=== PATIENT | female | born 1990 | race Caucasian/White ===

== ENCOUNTER 2017-07-14 13:49 | Observation (INO) | payer MEDICAID ==
[~2017-07-14] VITALS: Ht 154.9 cm; Wt 96.2 kg
[~2017-07-14 13:49] MED LIST: PNV1TABL76 PO
== END 2017-07-14 16:00 | disposition home or self-care (01) ==
LOC: ER 14:25 → L&D 14:28
PROVIDERS: ADMIT Obstetrics & Gynecology; ATTEND Obstetrics & Gynecology
DX: O26.853 Spotting complicating pregnancy, third trimester (principal); O26.893 Other specified pregnancy related conditions, third trimester; R05 Cough; L81.8 Other specified disorders of pigmentation; Z3A.33 33 weeks gestation of pregnancy
CPT/HCPCS: G0378; J7120

== ENCOUNTER 2017-07-14 16:28 | Emergency (ER) | payer MEDICAID ==
[~2017-07-14] VITALS: Ht 154.9 cm; Wt 97.0 kg
[2017-07-14 23:07] VITALS: BP 119/69
== END 2017-07-14 23:07 | disposition home or self-care (01) ==
LOC: ER 20:39
DX: O99.513 Diseases of the respiratory system complicating pregnancy, third trimester (principal); J02.9 Acute pharyngitis, unspecified; R21 Rash and other nonspecific skin eruption; Z3A.33 33 weeks gestation of pregnancy
CPT/HCPCS: 99281; 99283

== ENCOUNTER 2018-01-08 19:33 | Emergency (ER) | payer MEDICAID ==
[~2018-01-08] VITALS: Ht 157.5 cm; Wt 86.0 kg
[2018-01-09] MEDS ORDERED: SODIUM CHLORIDE 0.9% 1,000 ML IV ONE (01:43)
[2018-01-09] MEDS ORDERED: ONDANSETRON HCL 4MG/2ML VIAL IV ONE (01:45)
[2018-01-09 02:06] LABS: BASOPHILS % 0.5 % (0.0-2.0); EOSINOPHILS % 0.4 % (0.0-5.0); HEMOGLOBIN. 11.1 g/dL (12.0-16.0); LYMPHOCYTES % 17.3 % (20.0-50.0); MEAN CORPUSCULAR HEMOGLOBIN 26.4 pg (28.0-32.0); MEAN CORPUSCULAR VOLUME 80.8 fL (81.0-99.0); MEAN PLATELET VOLUME 10.2 fl (7.4-10.4); MONOCYTES % 7.5 % (2.0-8.0); NEUTROPHILS % 74.3 % (40.0-76.0); PLATELET 282 x1000/uL (130-400); RED CELL DISTRIBUTION WIDTH 14.7 % (11.6-14.6)
[2018-01-09 02:08] LABS: CHLORIDE 106 mEq/L (98-107)
[2018-01-09 02:26] LABS: HCG SCREEN NEGATIVE
[2018-01-09 03:25] LABS: CLARITY URINE CLOUDY (CLEAR); COLOR URINE YELLOW (YELLOW); KETONES URINE NEGATIVE (NEGATIVE); LEUKOCYTE ESTERASE URINE 2+ (NEGATIVE); NITRITE URINE POSITIVE (NEGATIVE); OCCULT BLOOD URINE NEGATIVE (NEGATIVE); PROTEIN URINE NEGATIVE (NEGATIVE); SPECIFIC GRAVITY URINE 1.021 (1.005-1.030); UROBILINOGEN URINE 0.2 E.U./dL (0.2-1.0)
[2018-01-09 04:23] VITALS: BP 119/62
== END 2018-01-09 05:05 | disposition home or self-care (01) ==
LOC: ER 01-09 02:40
DX: N39.0 Urinary tract infection, site not specified (principal); R42 Dizziness and giddiness
CPT/HCPCS: 36415; 80048; 81003; 84703; 85025; 87077; 87086; 87186; 93005; 96361; 96374; 99285; J2405; J7030